=== PATIENT | female | born 1985 | race Caucasian/White ===

== ENCOUNTER → 2019-01-30 | Outpatient (CLI) | payer OTHER, MEDICAID ==
[~2019-01-30] MED LIST: DIA5 PO; IBUP800T37 PO; LOR5/325 PO; ONDA4TAB PO
== END ==
LOC: US 00:58
PROVIDERS: ATTEND Nurse Practitioner Family
DX: I34.0 Nonrheumatic mitral (valve) insufficiency (principal); I37.1 Nonrheumatic pulmonary valve insufficiency
CPT/HCPCS: 93306